=== PATIENT | female | born 1965 | race Caucasian/White ===

== ENCOUNTER → 2022-06-26 | Outpatient (CLI) | payer OTHER ==
[~2022-06-26] MED LIST: ANAS1TAB2 PO; ARIP10TA32 PO; ARIP1TAB4; ARIP1TAB6 PO; CALTTAB6 PO; DEXA4TA PO; IBRA100C PO; LORA1TAB4 PO; LORA2CON5 PO; MULT-90 PO; NAPR-832 PO; ONDA-84 PO; PROC10TA5 PO
[2022-06-26 13:45] VITALS: BP 106/66
== END ==
LOC: M IRPRO 12:14
PROVIDERS: ATTEND Specialist
DX: J18.8 Other pneumonia, unspecified organism (principal); C50.912 Malignant neoplasm of unspecified site of left female breast; C79.51 Secondary malignant neoplasm of bone

== ENCOUNTER → 2022-07-23 | Outpatient (CLI) | payer OTHER ==
[~2022-07-23] MED LIST changes: +LIDOCAINE 1% MDV 20ML VIAL As Ordered ONE
[2022-07-23 14:45] VITALS: BP 123/74
== END ==
LOC: M IRPRO 13:18
PROVIDERS: ATTEND Specialist
DX: C50.912 Malignant neoplasm of unspecified site of left female breast (principal); C79.51 Secondary malignant neoplasm of bone; R18.0 Malignant ascites

== ENCOUNTER → 2022-08-18 | Outpatient (CLI) | payer OTHER ==
[~2022-08-18] MED LIST changes: -LIDOCAINE 1% MDV 20ML VIAL As Ordered ONE; +OMEP1CAP73 PO; +VERZ150T PO
[2022-08-18 13:50] VITALS: BP 122/75
[2022-08-18 14:15] LABS: HEMATOCRIT 33.3 % (36.0-47.0); MEAN CORPUSCULAR HEMOGLOBIN 30.7 pg (27.0-33.0); PLATELET COUNT, AUTOMATED 258 10^3/uL (150-450); RED BLOOD COUNT 3.58 10^6/uL (4.00-5.40)
[2022-08-18 14:25] LABS: INR 0.97; PROTHROMBIN TIME 13.1 SECONDS (12.5-14.5)
[2022-08-18 14:26] LABS: PARTIAL THROMBOPLASTIN TIME 36.1 SECONDS (24.8-34.2)
[2022-08-18 14:58] LABS: ALBUMIN 2.3 GM/DL (3.2-5.2); ALT/SGPT 14 U/L (12-78); BILIRUBIN,TOTAL 0.4 MG/DL (0.2-1.0); BLOOD UREA NITROGEN 7 MG/DL (7-18); CALCIUM LEVEL 8.9 MG/DL (8.5-10.1); CARBON DIOXIDE LEVEL 29 MEQ/L (21-32); CHLORIDE LEVEL 107 MEQ/L (98-107); CREATININE FOR GFR 0.85 MG/DL (0.55-1.30); GLOMERULAR FILTRATION RATE > 60.0 (>51); GLUCOSE, FASTING 90 MG/DL (70-100); SODIUM LEVEL 141 MEQ/L (136-145); TOTAL PROTEIN 5.3 GM/DL (6.4-8.2)
== END ==
LOC: M IRPRO 12:22
PROVIDERS: ATTEND Specialist
DX: R18.8 Other ascites (principal)

== ENCOUNTER → 2022-09-08 | Outpatient (CLI) | payer OTHER ==
[~2022-09-08] MED LIST changes: +LIDOCAINE 1% MDV 20ML VIAL As Ordered ONE
[2022-09-08 12:25] VITALS: BP 113/76
== END ==
LOC: M IRPRO 10:06
PROVIDERS: ATTEND Specialist
DX: C50.919 Malignant neoplasm of unspecified site of unspecified female breast (principal); R18.8 Other ascites

== ENCOUNTER → 2022-10-07 | Outpatient (CLI) | payer OTHER ==
[~2022-10-07] MED LIST changes: -LIDOCAINE 1% MDV 20ML VIAL As Ordered ONE; +POTA-151 PO
[2022-10-07 15:08] VITALS: BP 122/84
== END ==
LOC: M IRPRO 13:56
PROVIDERS: ATTEND Specialist
DX: C50.919 Malignant neoplasm of unspecified site of unspecified female breast (principal); R18.0 Malignant ascites

== ENCOUNTER → 2022-11-20 | Outpatient (CLI) | payer OTHER ==
[~2022-11-20] MED LIST changes: +FULV250S IM
[2022-11-20 13:28] VITALS: BP 115/71
== END ==
LOC: M IRPRO 11:53
PROVIDERS: ATTEND Specialist
DX: C50.919 Malignant neoplasm of unspecified site of unspecified female breast (principal); R18.0 Malignant ascites

== ENCOUNTER → 2022-12-25 | Outpatient (CLI) | payer MEDICARE ==
[~2022-12-25] MED LIST changes: +LOPE-39 PO
[2022-12-25 12:37] VITALS: BP 115/73
== END ==
LOC: M IRPRO 11:27
PROVIDERS: ATTEND Specialist
DX: C50.919 Malignant neoplasm of unspecified site of unspecified female breast (principal); R18.0 Malignant ascites

== ENCOUNTER → 2023-02-09 | Outpatient (CLI) | payer MEDICARE, OTHER ==
[~2023-02-09] MED LIST changes: +LIDOCAINE 1% MDV 20ML VIAL As Ordered ONE
== END ==
LOC: M IRPRO 13:56
PROVIDERS: ATTEND Specialist
DX: R18.8 Other ascites (principal)

== ENCOUNTER → 2023-03-12 | Outpatient (CLI) | payer MEDICARE, OTHER ==
[~2023-03-12] MED LIST changes: -LIDOCAINE 1% MDV 20ML VIAL As Ordered ONE; +LORA1TAB23 PO; -LORA1TAB4 PO; +OMEP-173
[2023-03-12 11:03] LABS: INR 0.97; PARTIAL THROMBOPLASTIN TIME 31.3 SECONDS (24.8-34.2); PROTHROMBIN TIME 13.1 SECONDS (12.5-14.5)
[2023-03-12 11:41] VITALS: BP 118/79
== END ==
LOC: M IRPRO 10:08
PROVIDERS: ATTEND Specialist
DX: C50.919 Malignant neoplasm of unspecified site of unspecified female breast (principal); R18.0 Malignant ascites

== ENCOUNTER → 2023-04-28 | Outpatient (CLI) | payer MEDICARE ==
[~2023-04-28] MED LIST changes: +CAPE1TAB2 PO; +FURO20TA2 PO; +SPIR-10 PO
[2023-04-28 13:15] VITALS: TEMP 98.5
[2023-04-28 14:22] VITALS: BP 111/67; O2SAT 98
[2023-04-28 15:27] LABS: SOURCE, BODY FLUID ASCITES
[2023-04-28 15:28] LABS: APPEARANCE, BODY FLUID CLEAR (CLEAR); ASCITES FL COLOR YELLOW (COLORLESS)
[2023-04-28 15:30] LABS: SOURCE, BODY FLUID GLUCOSE ASCITES
[2023-04-28 15:31] LABS: LDH, BODY FLUID 126 U/L (NOT ESTABLISHED); SOURCE, BODY FLUID LDH ASCITES
[2023-04-28 15:32] LABS: SOURCE, BODY FLUID TOT PROTEIN ASCITES; TOTAL PROTEIN, BODY FLUID 3.8 G/DL (NOT ESTABLISHED)
== END ==
LOC: M IRPRO 12:37
PROVIDERS: ATTEND Specialist
DX: R18.8 Other ascites (principal)

== ENCOUNTER → 2023-07-06 | Outpatient (CLI) | payer MEDICARE, MEDICAID ==
[~2023-07-06] MED LIST changes: -OMEP-173; +OMEP-173 PO; +PEPC40TA12 PO
[2023-07-06 13:50] VITALS: TEMP 97.5
[2023-07-06 15:15] VITALS: BP 121/72; O2SAT 100
== END ==
LOC: M IRPRO 12:51
PROVIDERS: ATTEND Specialist
DX: R18.8 Other ascites (principal)

== ENCOUNTER → 2023-12-01 | Outpatient (CLI) | payer MEDICARE ==
[2023-12-01 11:45] VITALS: TEMP 98.5
[2023-12-01 12:38] VITALS: BP 126/77; O2SAT 100
== END ==
LOC: M IRPRO 11:30
PROVIDERS: ATTEND Internal Medicine Medical Oncology
DX: R18.8 Other ascites (principal); C50.919 Malignant neoplasm of unspecified site of unspecified female breast

== ENCOUNTER 2023-12-03 13:59 | Inpatient (IN) | payer MEDICARE ==
[2023-12-03] VITALS (19 sets, daily range): BP systolic 94–130; BP diastolic 52–85; TEMP 97–97.3; O2SAT 100
[~2023-12-03] VITALS: Ht 165.1 cm; Wt 84.6 kg
[2023-12-03] MEDS ORDERED: LEVALBUTEROL 1.25MG 0.5ML CONCENTRATE NEB NEB PRN (15:35)
[2023-12-03] MEDS ORDERED: PERCOCET 5MG/325MG TAB PO PRN (15:35)
[2023-12-03] MEDS ORDERED: ACETAMINOPHEN TAB 650MG DOSE (2X325MG) PO PRN (15:35)
[2023-12-03] MEDS ORDERED: BISACODYL 10MG SUPP PR PRN (15:35)
[2023-12-03] MEDS ORDERED: ONDANSETRON 4MG 2ML VIAL IV PRN (15:35)
[2023-12-03 15:45] LABS: BASO % 0.6 % (0.0-1.0); EOS % 0.4 % (0.0-3.0); HEMATOCRIT 35.3 % (36.0-47.0); HEMOGLOBIN 11.9 g/dl (12.0-15.5); LYMPH # 1.1 10^3/uL (1.5-5.0); LYMPH % 21.4 % (24.0-44.0); MEAN CORPUSCULAR HEMOGLOBIN 32.8 pg (27.0-33.0); MEAN CORPUSCULAR HGB CONC 33.7 g/dl (32.0-36.5); MEAN CORPUSCULAR VOLUME 97.2 fl (80.0-96.0); MONO # 0.3 10^3/uL (0.0-0.8); MONO % 5.6 % (2.0-8.0); NEUTROPHILS # 3.6 10^3/uL (1.5-8.5); NEUTROPHILS % 71.6 % (36.0-66.0); PLATELET COUNT, AUTOMATED 207 10^3/uL (150-450); RED BLOOD COUNT 3.63 10^6/uL (4.00-5.40)
[2023-12-03 15:57] LABS: INR 1.18; PARTIAL THROMBOPLASTIN TIME 30.4 SECONDS (24.8-34.2); PROTHROMBIN TIME 14.6 SECONDS (12.5-14.5)
[2023-12-03] MEDS: flumazeniL 0.5MG/5ML VIAL IV STA (15:58)
[2023-12-03 16:18] LABS: CK-MB VALUE MASS < 1.0 NG/ML (<3.6)
[2023-12-03 16:20] LABS: CPK CREATINE PHOSPHOKINASE 40 U/L (34-145)
[2023-12-03 16:21] LABS: ALBUMIN 3.3 G/DL (3.2-5.2); ALKALINE PHOSPHATASE 118 U/L (46-116); ALT/SGPT 20 U/L (7.0-40); AST/SGOT 21 U/L (<34); BILIRUBIN,DIRECT 0.6 MG/DL (<0.4); BILIRUBIN,TOTAL 1.6 MG/DL (0.3-1.2); BLOOD UREA NITROGEN 15 MG/DL (9-23); CALCIUM LEVEL 8.9 MG/DL (8.5-10.1); CARBON DIOXIDE LEVEL 28 MMOL/L (20-31); CHLORIDE LEVEL 104 MMOL/L (98-107); CREATININE FOR GFR 0.82 MG/DL (0.55-1.30); GLOMERULAR FILTRATION RATE > 60.0 (>51); GLUCOSE, FASTING 89 MG/DL (60-100); POTASSIUM SERUM 4.2 MMOL/L (3.5-5.1); SODIUM LEVEL 137 MMOL/L (136-145)
[2023-12-03 16:22] LABS: THYROXINE (T4) 18.2 UG/DL (4.5-10.9)
[2023-12-03 16:23] LABS: RSV AMPLIFICATION NEGATIVE (NEGATIVE); THYROID STIMULATING HORMONE 0.973 uIU/ML (0.55-4.78)
[2023-12-03] MEDS: D5W/0.9% SODIUM CHLORIDE 1,000 ML IV SCH (16:25)
[2023-12-03 16:27] LABS: PROCALCITONIN 0.06 ng/ml
[2023-12-03] MEDS: ceFAZolin SOD 2 GM in IV 1 EA IV ONE (16:40)
[2023-12-03] MEDS ORDERED: FAMO40TA3 PO (17:03)
[2023-12-03] MEDS ORDERED: FURO20TA2 PO (17:03)
[2023-12-03] MEDS ORDERED: SPIR-10 PO (17:04)
[2023-12-03] MEDS ORDERED: CAPE1TAB2 PO (17:05)
[2023-12-03 17:10] LABS: CK-MB VALUE MASS < 1.0 NG/ML (<3.6); CPK CREATINE PHOSPHOKINASE 51 U/L (34-145); MB/CK RELATIVE INDEX 1.96 (< OR =4)
[2023-12-03 17:13] LABS: ABG BASE EXCESS -1.5 (-2.0-2.0); ABG HCO3 21.7 MMOL/L (22.0-26.0); ABG O2 SATURATION 97.5 % (95.0-99.0); ABG PARTIAL PRESSURE CO2 31.8 mmHg (35.0-45.0); ABG STANDARD HCO3 23.2 MMOL/L. (22.0-26.0); ABG TOTAL CO2 22.6 MMOL/L (22.0-29.0); ABG pH (ARTERIAL) 7.451 UNITS (7.350-7.450)
[2023-12-03] MEDS ORDERED: HOME MED LIST COMPLETE! XX SCH (17:15)
[2023-12-03] MEDS: MIDAZOLAM INJ 2MG/2ML VIAL IV STA (17:25)
[2023-12-03] MEDS: LIDOCAINE 1% MDV 20ML VIAL SC STA (17:30)
[2023-12-03] MEDS: MIDAZOLAM INJ 2MG/2ML VIAL IV ONE (17:34)
[2023-12-03] MEDS: MOM 30ML SUSPENSION UDC PO SCH (18:35)
[2023-12-03] MEDS: KETOROLAC 30 MG/ML 1ML VIAL IV SCH (18:58)
[2023-12-03] MEDS: PANTOPRAZOLE 40MG TAB (PROTONIX) PO SCH (18:58)
[2023-12-03 19:05] LABS: PH BODY FLUID 7.531 UNITS (NOT ESTABLISHED); SOURCE, BODY FLUID pH PLEURAL
[2023-12-03 19:28] LABS: SOURCE, BODY FLUID PLEURAL
[2023-12-03 19:29] LABS: APPEARANCE, BODY FLUID HAZY (CLEAR); PLEURAL FL COLOR YELLOW (COLORLESS)
[2023-12-03 19:41] LABS: SOURCE, BODY FLUID ALBUMIN PLEURAL
[2023-12-03 19:46] LABS: SOURCE, BODY FLUID GLUCOSE PLEURAL
[2023-12-03 19:48] LABS: AMYLASE, BODY FLUID 102 U/L (NOT ESTABLISHED); CHOLESTEROL, BODY FLUID 114 MG/DL (NOT ESTABLISHED); LDH, BODY FLUID 176 U/L (NOT ESTABLISHED); SOURCE, BODY FLUID AMYLASE PLEURAL; SOURCE, BODY FLUID CHOL PLEURAL; SOURCE, BODY FLUID LDH PLEURAL; SOURCE, BODY FLUID TOT PROTEIN PLEURAL; TOTAL PROTEIN, BODY FLUID 4.6 G/DL (NOT ESTABLISHED)
[2023-12-03 19:52] LABS: SOURCE, BODY FLUID TRIG PLEURAL; TRIGLYCERIDE, BODY FLUID 31 MG/DL (NOT ESTABLISHED)
[2023-12-03] MEDS: LEVALBUTEROL 1.25MG 0.5ML CONCENTRATE NEB NEB SCH (20:22)
[2023-12-03] MEDS: DOCUSATE SODIUM 100MG CAPSULE PO SCH (20:33)
[2023-12-03] MEDS: HEPARIN SOD (PORCINE) 5000UNITS/ML 1ML VIAL/SYRINGE SC SCH (20:33)
[2023-12-04] VITALS (7 sets, daily range): BP systolic 86–115; BP diastolic 50–66; TEMP 97.2–97.8; O2SAT 95–100
[2023-12-04 02:10] LABS: LDH LACTATE DEHYDROGENASE 250 U/L (120-246)
[2023-12-04] MEDS: HYDROCORTISONE 100MG/2ML VIAL IV ONE (04:19)
[2023-12-04] MEDS: NS 500 ML IV ONE (04:20)
[2023-12-04 06:14] LABS: ABG BASE EXCESS -1.1 (-2.0-2.0); ABG HCO3 23.2 MMOL/L (22.0-26.0); ABG O2 SATURATION 97.2 % (95.0-99.0); ABG PARTIAL PRESSURE CO2 37.4 mmHg (35.0-45.0); ABG PARTIAL PRESSURE O2 91.2 mmHg (75.0-100.0); ABG STANDARD HCO3 23.5 MMOL/L. (22.0-26.0); ABG TOTAL CO2 24.3 MMOL/L (22.0-29.0)
[2023-12-04 06:26] LABS: PH BODY FLUID 7.546 UNITS (NOT ESTABLISHED); SOURCE, BODY FLUID pH PLEURAL
[2023-12-04 06:36] LABS: SOURCE, BODY FLUID ALBUMIN PLEURAL
[2023-12-04 06:41] LABS: SOURCE, BODY FLUID GLUCOSE PLEURAL
[2023-12-04 06:42] LABS: LDH, BODY FLUID 190 U/L (NOT ESTABLISHED); SOURCE, BODY FLUID LDH PLEURAL
[2023-12-04 06:43] LABS: AMYLASE, BODY FLUID 95 U/L (NOT ESTABLISHED); CHOLESTEROL, BODY FLUID 108 MG/DL (NOT ESTABLISHED); SOURCE, BODY FLUID AMYLASE PLEURAL; SOURCE, BODY FLUID CHOL PLEURAL; SOURCE, BODY FLUID TOT PROTEIN PLEURAL; TOTAL PROTEIN, BODY FLUID 4.4 G/DL (NOT ESTABLISHED)
[2023-12-04 06:53] LABS: SOURCE, BODY FLUID TRIG PLEURAL; TRIGLYCERIDE, BODY FLUID 30 MG/DL (NOT ESTABLISHED)
[2023-12-04 06:54] LABS: APPEARANCE, BODY FLUID HAZY (CLEAR); PLEURAL FL COLOR AMBER (COLORLESS); SOURCE, BODY FLUID PLEURAL
[2023-12-04 07:09] LABS: BASO % 0.5 % (0.0-1.0); EOS % 0.2 % (0.0-3.0); HEMATOCRIT 34.2 % (36.0-47.0); HEMOGLOBIN 11.4 g/dl (12.0-15.5); LYMPH # 0.7 10^3/uL (1.5-5.0); LYMPH % 15.4 % (24.0-44.0); MEAN CORPUSCULAR HEMOGLOBIN 32.6 pg (27.0-33.0); MEAN CORPUSCULAR HGB CONC 33.3 g/dl (32.0-36.5); MEAN CORPUSCULAR VOLUME 97.7 fl (80.0-96.0); MONO # 0.2 10^3/uL (0.0-0.8); MONO % 3.8 % (2.0-8.0); NEUTROPHILS # 3.4 10^3/uL (1.5-8.5); NEUTROPHILS % 79.9 % (36.0-66.0); PLATELET COUNT, AUTOMATED 194 10^3/uL (150-450); WHITE BLOOD COUNT 4.2 10^3/uL (4.0-10.0)
[2023-12-04 07:35] LABS: LDH LACTATE DEHYDROGENASE 224 U/L (120-246)
[2023-12-04 07:36] LABS: BLOOD UREA NITROGEN 11 MG/DL (9-23); CALCIUM LEVEL 8.5 MG/DL (8.5-10.1); CARBON DIOXIDE LEVEL 28 MMOL/L (20-31); CHLORIDE LEVEL 108 MMOL/L (98-107); CREATININE FOR GFR 0.78 MG/DL (0.55-1.30); GLOMERULAR FILTRATION RATE > 60.0 (>51); GLUCOSE, FASTING 97 MG/DL (60-100); POTASSIUM SERUM 4.1 MMOL/L (3.5-5.1); SODIUM LEVEL 141 MMOL/L (136-145)
[2023-12-04] MEDS ORDERED: NS 1,000 ML IV ONE (09:05)
[2023-12-04] MEDS: MIDODRINE 5 MG TAB PO SCH (09:30)
[2023-12-04] MEDS ORDERED: MIDO5TA PO (09:32)
[2023-12-04] MEDS ORDERED: SELF1KIT MC (09:37)
[2023-12-04] MEDS: COSYNTROPIN 0.25 MG/ML 1ML VIAL IV ONE (10:16)
[2023-12-04] MEDS: LR 1,000 ML IV SCH (11:00)
[2023-12-04] MEDS ORDERED: COSYNTROPIN 0.25 MG/ML 1ML VIAL IV ONE (11:00)
[2023-12-04 11:09] LABS: CK-MB VALUE MASS < 1.0 NG/ML (<3.6)
[2023-12-04 11:10] LABS: CPK CREATINE PHOSPHOKINASE 59 U/L (34-145); MB/CK RELATIVE INDEX 1.69 (< OR =4)
[2023-12-04 11:13] LABS: CORTISOL AM 32.6 UG/DL (4.3-22.4)
[2023-12-04 11:22] LABS: PROCALCITONIN 0.06 ng/ml
[2023-12-04] MEDS: NS 1,000 ML IV ONE (11:47)
[2023-12-04] MEDS ORDERED: MIDODRINE 5 MG TAB PO SCH (12:00)
[2023-12-05 03:52] VITALS: BP 108/50; TEMP 98.1; O2SAT 97
[2023-12-05 07:18] LABS: BASO % 0.4 % (0.0-1.0); EOS # 0.1 10^3/uL (0.0-0.5); HEMATOCRIT 32.5 % (36.0-47.0); HEMOGLOBIN 10.8 g/dl (12.0-15.5); LYMPH # 1.2 10^3/uL (1.5-5.0); LYMPH % 23.7 % (24.0-44.0); MEAN CORPUSCULAR HEMOGLOBIN 32.9 pg (27.0-33.0); MEAN CORPUSCULAR HGB CONC 33.2 g/dl (32.0-36.5); MEAN CORPUSCULAR VOLUME 99.1 fl (80.0-96.0); MONO # 0.4 10^3/uL (0.0-0.8); MONO % 7.2 % (2.0-8.0); NEUTROPHILS # 3.5 10^3/uL (1.5-8.5); NEUTROPHILS % 67.3 % (36.0-66.0); PLATELET COUNT, AUTOMATED 194 10^3/uL (150-450); RED BLOOD COUNT 3.28 10^6/uL (4.00-5.40); WHITE BLOOD COUNT 5.1 10^3/uL (4.0-10.0)
[2023-12-05 07:24] VITALS: BP 107/62
[2023-12-05 07:28] VITALS: BP 107/62; TEMP 98.2; O2SAT 98
[2023-12-05] MEDS: PERCOCET 5MG/325MG TAB PO PRN (07:34)
[2023-12-05 07:36] LABS: BLOOD UREA NITROGEN 12 MG/DL (9-23); CALCIUM LEVEL 8.5 MG/DL (8.5-10.1); CARBON DIOXIDE LEVEL 26 MMOL/L (20-31); CHLORIDE LEVEL 111 MMOL/L (98-107); CREATININE FOR GFR 0.73 MG/DL (0.55-1.30); GLOMERULAR FILTRATION RATE > 60.0 (>51); GLUCOSE, FASTING 85 MG/DL (60-100); POTASSIUM SERUM 3.9 MMOL/L (3.5-5.1); SODIUM LEVEL 143 MMOL/L (136-145)
[2023-12-05 09:37] VITALS: BP 104/59
[2023-12-08] MEDS ORDERED: CAPE1TAB2 PO (13:51)
== END 2023-12-05 10:27 | disposition home or self-care (01) | DRG 598 ==
LOC: M ED 13:59 → M ED INP 15:34 → M PCU 16:17
PROVIDERS: ADMIT Internal Medicine; ATTEND General Practice
PROC: 0W9B3ZZ Drainage of Left Pleural Cavity, Percutaneous Approach (ICD-10-PCS; principal; 2023-12-03)
DX: C50.912 Malignant neoplasm of unspecified site of left female breast (principal); R18.0 Malignant ascites; E87.20 Acidosis, unspecified; C79.51 Secondary malignant neoplasm of bone; C78.7 Secondary malignant neoplasm of liver and intrahepatic bile duct; C78.6 Secondary malignant neoplasm of retroperitoneum and peritoneum; J91.0 Malignant pleural effusion; I95.9 Hypotension, unspecified; E86.1 Hypovolemia; D63.8 Anemia in other chronic diseases classified elsewhere; F41.9 Anxiety disorder, unspecified; F20.9 Schizophrenia, unspecified; Z92.21 Personal history of antineoplastic chemotherapy; Z87.891 Personal history of nicotine dependence; Z91.013 Allergy to seafood; Z88.8 Allergy status to other drugs, medicaments and biological substances; Z79.899 Other long term (current) drug therapy

== ENCOUNTER 2024-01-24 12:23 | Day surgery (SDC) | payer MEDICARE ==
[~2024-01-24] VITALS: Ht 165.1 cm; Wt 87.8 kg
[~2024-01-24 12:23] MED LIST changes: +FAMO40TA3 PO; +MIDO5TA PO; +SELF1KIT MC
[2024-01-24 13:10] VITALS: TEMP 97
[2024-01-24 13:38] LABS: HEMATOCRIT 35.9 % (36.0-47.0); HEMOGLOBIN 12.1 g/dl (12.0-15.5); MEAN CORPUSCULAR HEMOGLOBIN 32.4 pg (27.0-33.0); MEAN CORPUSCULAR HGB CONC 33.7 g/dl (32.0-36.5); MEAN CORPUSCULAR VOLUME 96.2 fl (80.0-96.0); PLATELET COUNT, AUTOMATED 222 10^3/uL (150-450); RED BLOOD COUNT 3.73 10^6/uL (4.00-5.40); WHITE BLOOD COUNT 4.2 10^3/uL (4.0-10.0)
[2024-01-24] MEDS: ceFAZolin SOD 2 GM in IV 1 EA IV ONE (13:47)
[2024-01-24 13:53] LABS: INR 1.14; PROTHROMBIN TIME 14.3 SECONDS (12.5-14.5)
[2024-01-24 14:15] LABS: BLOOD UREA NITROGEN 18 MG/DL (9-23); CALCIUM LEVEL 9.5 MG/DL (8.5-10.1); CARBON DIOXIDE LEVEL 28 MMOL/L (20-31); CHLORIDE LEVEL 104 MMOL/L (98-107); CREATININE FOR GFR 0.86 MG/DL (0.55-1.30); GLOMERULAR FILTRATION RATE > 60.0 (>51); GLUCOSE, FASTING 84 MG/DL (60-100); POTASSIUM SERUM 4.2 MMOL/L (3.5-5.1); SODIUM LEVEL 140 MMOL/L (136-145)
[2024-01-24] MEDS ORDERED: MIDAZOLAM INJ 2MG/2ML VIAL As Ordered ONE (15:02)
[2024-01-24 15:50] VITALS: BP 129/82; O2SAT 100
[2024-01-24] MEDS ORDERED: LIDOCAINE W/EPINEPHRINE 1% 20ML VIAL As Ordered ONE (16:06)
== END 2024-01-24 15:59 | disposition home or self-care (01) ==
LOC: M OPP 12:23
PROVIDERS: ATTEND Thoracic Surgery (Cardiothoracic Vascular Surgery)
DX: Z48.03 Encounter for change or removal of drains (principal); J91.0 Malignant pleural effusion; C50.912 Malignant neoplasm of unspecified site of left female breast; Z88.8 Allergy status to other drugs, medicaments and biological substances; Z91.013 Allergy to seafood; Z51.81 Encounter for therapeutic drug level monitoring
CPT/HCPCS: 32552; 36415; 80048; 85027; 85610; 85730; J0690; J2250

== ENCOUNTER → 2024-03-30 | Outpatient (CLI) | payer MEDICARE ==
[~2024-03-30] MED LIST changes: +TAMO20TA8 PO
[2024-03-30 09:30] VITALS: TEMP 98.5
[2024-03-30 10:00] VITALS: BP 123/65; O2SAT 99
== END ==
LOC: M IRPRO 09:18
PROVIDERS: ATTEND Internal Medicine Medical Oncology
DX: R18.8 Other ascites (principal)

== ENCOUNTER → 2024-05-08 | Outpatient (CLI) | payer MEDICARE ==
[~2024-05-08] MED LIST changes: +HYDR-3713 PO
[2024-05-08 12:20] VITALS: TEMP 97.9
[2024-05-08 13:16] VITALS: BP 119/79; O2SAT 100
== END ==
LOC: M IRPRO 12:04
PROVIDERS: ATTEND Specialist
DX: R18.8 Other ascites (principal); C34.90 Malignant neoplasm of unspecified part of unspecified bronchus or lung

== ENCOUNTER 2024-07-03 11:09 | Inpatient (IN) | payer MEDICARE ==
[~2024-07-03] VITALS: Ht 165.1 cm; Wt 97.5 kg
[~2024-07-03 11:09] MED LIST changes: +ALPE1TAB3 PO; +ONDA-196 PO
[2024-07-03 13:32] LABS: HEMATOCRIT 31.8 % (36.0-47.0); HEMOGLOBIN 10.4 g/dl (12.0-15.5); LYMPH # 0.7 10^3/uL (1.5-5.0); LYMPH % 69.3 % (24.0-44.0); MEAN CORPUSCULAR HEMOGLOBIN 27.5 pg (27.0-33.0); MEAN CORPUSCULAR HGB CONC 32.7 g/dl (32.0-36.5); MEAN CORPUSCULAR VOLUME 84.1 fl (80.0-96.0); MONO # 0.1 10^3/uL (0.0-0.8); MONO % 13.9 % (2.0-8.0); NEUTROPHILS % 15.8 % (36.0-66.0); PLATELET COUNT, AUTOMATED 195 10^3/uL (150-450); RED BLOOD COUNT 3.78 10^6/uL (4.00-5.40)
[2024-07-03 13:43] LABS: INR 1.18; PROTHROMBIN TIME 14.6 SECONDS (12.5-14.5)
[2024-07-03 14:01] LABS: BLOOD UREA NITROGEN 11 MG/DL (9-23); CALCIUM LEVEL 8.9 MG/DL (8.5-10.1); CARBON DIOXIDE LEVEL 29 MMOL/L (20-31); CHLORIDE LEVEL 105 MMOL/L (98-107); CREATININE FOR GFR 0.87 MG/DL (0.55-1.30); GLOMERULAR FILTRATION RATE > 60.0 (>51); GLUCOSE, FASTING 98 MG/DL (60-100); POTASSIUM SERUM 3.8 MMOL/L (3.5-5.1); SODIUM LEVEL 138 MMOL/L (136-145)
[2024-07-03 16:39] LABS: APPEARANCE, BODY FLUID CLEAR (CLEAR); ASCITES FL COLOR YELLOW (COLORLESS); SOURCE, BODY FLUID ASCITES
[2024-07-03 16:58] LABS: SOURCE, BODY FLUID ALBUMIN ASCITES
[2024-07-03 17:03] LABS: SOURCE, BODY FLUID GLUCOSE ASCITES; SOURCE, BODY FLUID TOT PROTEIN ASCITES; TOTAL PROTEIN, BODY FLUID 4.1 G/DL (NOT ESTABLISHED)
[2024-07-03] MEDS ORDERED: ACETAMINOPHEN TAB 650MG DOSE (2X325MG) PO PRN (17:05)
[2024-07-03] MEDS ORDERED: NORCO, ANEXSIA 5/325MG TABLET (HYDROcodone/ACETAMINOPHEN) PO PRN ×2 (17:05)
[2024-07-03] MEDS ORDERED: ONDANSETRON 4MG TAB PO PRN (17:05)
[2024-07-03] MEDS ORDERED: MOM 30ML SUSPENSION UDC PO PRN (17:05)
[2024-07-03] MEDS ORDERED: ONDA-84 PO (17:10)
[2024-07-03] MEDS ORDERED: HOME MED LIST COMPLETE! XX SCH (17:10)
[2024-07-03] MEDS: LACTOBACILLUS ACIDOPHILUS CAP (BACID) PO SCH (18:40)
[2024-07-03] MEDS: PIPERACILLIN/TAZOBACTAM SOD 4.5 GM in D5W MINI-BAG PLUS 50 ML IV ONE (18:40)
[2024-07-03] MEDS: VANCOMYCIN HCL 1,000 MG, VIAL MATE ADAPTER 1 EACH in D5W 250 ML IV ONE ×2 (19:36→20:50)
[2024-07-03] MEDS: SENNA 8.6 MG TAB (SENOKOT) PO SCH (20:48)
[2024-07-03] MEDS: DOCUSATE SODIUM 100MG CAPSULE PO SCH (20:48)
[2024-07-03 22:05] VITALS: BP 124/83; TEMP 97.5; O2SAT 99
[2024-07-03] MEDS: FILGRASTIM 300MCG 0.5ML SYRINGE **SC ADMINISTRATION ONLY SC SCH (23:36)
[2024-07-04] MEDS: PIPERACILLIN/TAZOBACTAM SOD 3.375 GM in D5W MINI-BAG PLUS 50 ML IV SCH (00:43)
[2024-07-04 04:00] VITALS: BP 123/83; TEMP 97.3; O2SAT 97
[2024-07-04] MEDS: VANCOMYCIN HCL 1,000 MG, VIAL MATE ADAPTER 1 EACH in D5W 250 ML IV SCH (04:46)
[2024-07-04 06:29] LABS: HEMATOCRIT 27.7 % (36.0-47.0); HEMOGLOBIN 9.2 g/dl (12.0-15.5); MEAN CORPUSCULAR HEMOGLOBIN 27.5 pg (27.0-33.0); MEAN CORPUSCULAR HGB CONC 33.2 g/dl (32.0-36.5); MEAN CORPUSCULAR VOLUME 82.7 fl (80.0-96.0); PLATELET COUNT, AUTOMATED 181 10^3/uL (150-450); RED BLOOD COUNT 3.35 10^6/uL (4.00-5.40); WHITE BLOOD COUNT 1.4 10^3/uL (4.0-10.0)
[2024-07-04 07:13] LABS: ALBUMIN 2.7 G/DL (3.2-5.2); ALKALINE PHOSPHATASE 129 U/L (46-116); ALT/SGPT 55 U/L (7.0-40); AST/SGOT 31 U/L (<34); BILIRUBIN,TOTAL 0.8 MG/DL (0.3-1.2); BLOOD UREA NITROGEN 9 MG/DL (9-23); CALCIUM LEVEL 8.3 MG/DL (8.5-10.1); CARBON DIOXIDE LEVEL 26 MMOL/L (20-31); CHLORIDE LEVEL 105 MMOL/L (98-107); GLOMERULAR FILTRATION RATE > 60.0 (>51); GLUCOSE, FASTING 107 MG/DL (60-100); POTASSIUM SERUM 3.4 MMOL/L (3.5-5.1); SODIUM LEVEL 136 MMOL/L (136-145); TOTAL PROTEIN 5.1 G/DL (5.7-8.2)
[2024-07-04 07:47] LABS: ATYPICAL LYMPH 10 % (0-5); BASOPHILS 1 % (0-1); LYMPHOCYTES 66 % (16-44); MONOCYTES 8 % (0-5); NEUTROPHILS 15 % (28-66)
[2024-07-04 07:53] LABS: PLATELET ESTIMATE NORMAL (NORMAL)
[2024-07-04 08:06] LABS: VANCOMYCIN RANDOM 39.8 UG/ML
[2024-07-04] MEDS ORDERED: FILGRASTIM 300MCG 0.5ML SYRINGE **SC ADMINISTRATION ONLY SC SCH (09:00)
[2024-07-04] MEDS: ENOXAPARIN 40MG/0.4ML SYRINGE (J1650 PER 10MG) SC SCH (09:21)
[2024-07-04] MEDS: FUROSEMIDE 20 MG TAB PO SCH (09:23)
[2024-07-04] MEDS: SPIRONOLACTONE 25 MG TAB PO SCH (09:24)
[2024-07-04] MEDS: FAMOTIDINE 20 MG TAB PO SCH (09:24)
[2024-07-04 12:30] VITALS: BP 125/81; TEMP 98.4; O2SAT 97
[2024-07-04] MEDS: POTASSIUM CHLORIDE 10MEQ SR TABLET PO ONE (16:44)
[2024-07-04 20:00] VITALS: BP 119/77; TEMP 97.5; O2SAT 97
[2024-07-05 04:00] VITALS: BP 116/75; TEMP 97.7; O2SAT 96
[2024-07-05 08:02] LABS: HEMATOCRIT 32.4 % (36.0-47.0); HEMOGLOBIN 10.4 g/dl (12.0-15.5); LYMPH # 1.3 10^3/uL (1.5-5.0); LYMPH % 41.8 % (24.0-44.0); MEAN CORPUSCULAR HEMOGLOBIN 27.4 pg (27.0-33.0); MEAN CORPUSCULAR HGB CONC 32.1 g/dl (32.0-36.5); MEAN CORPUSCULAR VOLUME 85.5 fl (80.0-96.0); MONO # 0.7 10^3/uL (0.0-0.8); MONO % 21.9 % (2.0-8.0); NEUTROPHILS % 20.8 % (36.0-66.0); PLATELET COUNT, AUTOMATED 208 10^3/uL (150-450); RED BLOOD COUNT 3.79 10^6/uL (4.00-5.40); WHITE BLOOD COUNT 3.1 10^3/uL (4.0-10.0)
[2024-07-05 08:03] LABS: NEUTROPHILS # 0.7 10^3/uL (1.5-8.5)
[2024-07-05 08:38] LABS: BLOOD UREA NITROGEN 7 MG/DL (9-23); CALCIUM LEVEL 8.2 MG/DL (8.5-10.1); CARBON DIOXIDE LEVEL 26 MMOL/L (20-31); CHLORIDE LEVEL 104 MMOL/L (98-107); CREATININE FOR GFR 0.91 MG/DL (0.55-1.30); GLOMERULAR FILTRATION RATE > 60.0 (>51); GLUCOSE, FASTING 115 MG/DL (60-100); SODIUM LEVEL 136 MMOL/L (136-145)
[2024-07-05 12:10] VITALS: BP 114/75; TEMP 97.7; O2SAT 98
[2024-07-05] MEDS: POTASSIUM CHLORIDE 10MEQ SR TABLET PO SCH (18:11)
[2024-07-05] MEDS: LOPERAMIDE 2 MG CAPLET PO ONE (18:11)
[2024-07-05 20:00] VITALS: BP 140/80; TEMP 97.9; O2SAT 98
[2024-07-05] MEDS: LOPERAMIDE 2 MG CAPLET PO SCH (21:05)
[2024-07-06 04:00] VITALS: BP 125/89; TEMP 97.1; O2SAT 98
[2024-07-06 07:18] LABS: BASO # 0.1 10^3/uL (0.0-0.2); BASO % 0.3 % (0.0-1.0); EOS # 0.1 10^3/uL (0.0-0.5); EOS % 0.4 % (0.0-3.0); HEMATOCRIT 29.4 % (36.0-47.0); HEMOGLOBIN 9.7 g/dl (12.0-15.5); LYMPH # 2.2 10^3/uL (1.5-5.0); LYMPH % 14.3 % (24.0-44.0); MEAN CORPUSCULAR HEMOGLOBIN 27.7 pg (27.0-33.0); MONO # 2.3 10^3/uL (0.0-0.8); MONO % 14.9 % (2.0-8.0); NEUTROPHILS % 57.7 % (36.0-66.0); PLATELET COUNT, AUTOMATED 203 10^3/uL (150-450); WHITE BLOOD COUNT 15.5 10^3/uL (4.0-10.0)
[2024-07-06 07:43] LABS: BLOOD UREA NITROGEN < 5 MG/DL (9-23); CALCIUM LEVEL 8.8 MG/DL (8.5-10.1); CARBON DIOXIDE LEVEL 24 MMOL/L (20-31); CHLORIDE LEVEL 107 MMOL/L (98-107); CREATININE FOR GFR 0.82 MG/DL (0.55-1.30); GLOMERULAR FILTRATION RATE > 60.0 (>51); GLUCOSE, FASTING 83 MG/DL (60-100); POTASSIUM SERUM 3.5 MMOL/L (3.5-5.1); SODIUM LEVEL 138 MMOL/L (136-145)
[2024-07-06] MEDS ORDERED: POTA-150 PO (10:20)
[2024-07-06 12:00] VITALS: BP 132/78; TEMP 97.9; O2SAT 98
[2024-07-06] MEDS: FLUBLOK(EGGFREE) TRIVAL(24-25) VACCINE PF 0.5ML SYRINGE 18YRS & OLDER IM.IMMUN ONE (13:07)
[2024-07-06] MEDS: SODIUM CHLORIDE 0.9% INJ 10 ML SYR IV PRN (13:12)
[2024-07-07 15:02] LABS: NEUTROPHILS # 0.2 10^3/uL (1.5-8.5)
== END 2024-07-06 13:37 | disposition home or self-care (01) | DRG 809 ==
LOC: M ED 11:09 → M ED INP 17:05 → M MSPAV 21:58
PROVIDERS: ADMIT Internal Medicine; ATTEND Internal Medicine Nephrology
PROC: 0W9G3ZZ Drainage of Peritoneal Cavity, Percutaneous Approach (ICD-10-PCS; principal; 2024-07-03 15:00)
DX: D70.1 Agranulocytosis secondary to cancer chemotherapy (principal); C78.6 Secondary malignant neoplasm of retroperitoneum and peritoneum; C78.7 Secondary malignant neoplasm of liver and intrahepatic bile duct; C79.51 Secondary malignant neoplasm of bone; R18.0 Malignant ascites; K52.1 Toxic gastroenteritis and colitis; D61.810 Antineoplastic chemotherapy induced pancytopenia; F20.9 Schizophrenia, unspecified; M85.88 Other specified disorders of bone density and structure, other site; C50.912 Malignant neoplasm of unspecified site of left female breast; E87.6 Hypokalemia; F41.9 Anxiety disorder, unspecified; R26.89 Other abnormalities of gait and mobility; K21.9 Gastro-esophageal reflux disease without esophagitis; E66.9 Obesity, unspecified; Z87.891 Personal history of nicotine dependence; Z79.899 Other long term (current) drug therapy; Z88.8 Allergy status to other drugs, medicaments and biological substances

== ENCOUNTER → 2024-09-11 | Outpatient (CLI) | payer MEDICARE ==
[~2024-09-11] MED LIST changes: -ARIP10TA32 PO; +ARIP10TA63 PO; +BACT800T5 PO; +COLA100C5 PO; +GABA-1171 PO; +GABA-1172 PO; +GASTROGRAFIN SOLUTION 30ML ONE; +ISOVUE-370 76% 100ML VIAL ONE; +POTA-150 PO
== END ==
LOC: M PLAIMG 11:26
PROVIDERS: ATTEND Internal Medicine Hematology & Oncology
DX: C50.919 Malignant neoplasm of unspecified site of unspecified female breast (principal); R18.8 Other ascites; K57.90 Diverticulosis of intestine, part unspecified, without perforation or abscess without bleeding; D25.9 Leiomyoma of uterus, unspecified; C79.51 Secondary malignant neoplasm of bone; I70.0 Atherosclerosis of aorta; I25.10 Atherosclerotic heart disease of native coronary artery without angina pectoris; Z95.828 Presence of other vascular implants and grafts
CPT/HCPCS: 71260; 74178; Q9963; Q9967

== ENCOUNTER → 2025-02-12 | Outpatient (CLI) | payer MEDICARE ==
[~2025-02-12] VITALS: Ht 165.1 cm; Wt 93.5 kg
[~2025-02-12] MED LIST changes: +CEPH750C PO; +DULO30CA9 PO; -GASTROGRAFIN SOLUTION 30ML ONE; +HYDR-4571; +HYDR-4571 PO; -ISOVUE-370 76% 100ML VIAL ONE; +LOPE2CA PO; +METH-1164 PO; +MIRA3350 PO; +OXYC10TA12 PO; +RISATAB3 PO; +SENN-186 PO; +THERTAB19 PO; +TORS20TA2 PO; +TRIA1OI80 EXT
[2025-02-12 14:16] VITALS: BP 145/94; O2SAT 96
== END ==
LOC: M PAL 14:03
PROVIDERS: ATTEND Physician Assistant
DX: Z51.5 Encounter for palliative care (principal); C50.919 Malignant neoplasm of unspecified site of unspecified female breast; C79.51 Secondary malignant neoplasm of bone; C78.7 Secondary malignant neoplasm of liver and intrahepatic bile duct; C78.6 Secondary malignant neoplasm of retroperitoneum and peritoneum; R52 Pain, unspecified; K59.09 Other constipation; Z79.891 Long term (current) use of opiate analgesic; Z79.899 Other long term (current) drug therapy; Z91.013 Allergy to seafood; Z88.8 Allergy status to other drugs, medicaments and biological substances

== ENCOUNTER → 2025-02-27 | Outpatient (CLI) | payer MEDICARE ==
[~2025-02-27] VITALS: Ht 165.1 cm; Wt 98.7 kg
[~2025-02-27] MED LIST changes: +DULO1CAP5 PO; +LOPE1CAP5 PO; +MORP-69 PO; +ONDA-282 PO; +OXYC20TA40 PO
[2025-02-27 13:14] VITALS: BP 142/89; O2SAT 98
== END ==
LOC: M PAL 12:57
PROVIDERS: ATTEND Physician Assistant
DX: Z51.5 Encounter for palliative care (principal); C50.919 Malignant neoplasm of unspecified site of unspecified female breast; C79.51 Secondary malignant neoplasm of bone; C78.7 Secondary malignant neoplasm of liver and intrahepatic bile duct; C78.6 Secondary malignant neoplasm of retroperitoneum and peritoneum; Z79.891 Long term (current) use of opiate analgesic; R18.8 Other ascites; Z91.013 Allergy to seafood; Z88.8 Allergy status to other drugs, medicaments and biological substances; Z79.899 Other long term (current) drug therapy

== ENCOUNTER → 2025-03-01 | Outpatient (CLI) | payer MEDICARE ==
[2025-03-01 14:00] VITALS: TEMP 99.1
[2025-03-01 15:26] VITALS: BP 117/68; O2SAT 95
== END ==
LOC: M IRPRO 13:54
PROVIDERS: ATTEND Specialist
DX: R18.8 Other ascites (principal)

== ENCOUNTER → 2025-03-14 | Outpatient (CLI) | payer MEDICARE ==
[~2025-03-14] VITALS: Ht 165.1 cm; Wt 92.8 kg
[~2025-03-14] MED LIST changes: +MORP30TASA PO
[2025-03-14 11:42] VITALS: BP 132/88; O2SAT 96
== END ==
LOC: M PAL 11:27
PROVIDERS: ATTEND Physician Assistant
DX: Z51.5 Encounter for palliative care (principal); C50.911 Malignant neoplasm of unspecified site of right female breast; C78.7 Secondary malignant neoplasm of liver and intrahepatic bile duct; C79.51 Secondary malignant neoplasm of bone; C79.89 Secondary malignant neoplasm of other specified sites; Z98.890 Other specified postprocedural states; Z91.013 Allergy to seafood; Z79.899 Other long term (current) drug therapy; Z79.891 Long term (current) use of opiate analgesic

== ENCOUNTER 2025-05-14 13:10 | Inpatient (IN) | payer MEDICARE ==
[~2025-05-14] VITALS: Ht 165.1 cm; Wt 86.9 kg
[2025-05-14] MEDS ORDERED: DULO30CA9 PO (14:22)
[2025-05-14] MEDS ORDERED: ALPE1TAB3 PO (14:22)
[2025-05-14] MEDS ORDERED: ONDA-282 PO (14:22)
[2025-05-14] MEDS ORDERED: OXYC10TA12 PO (14:22)
[2025-05-14] MEDS ORDERED: METH-1164 PO (14:22)
[2025-05-14] MEDS ORDERED: MORP30TASA PO (14:22)
[2025-05-14] MEDS ORDERED: HOME MED LIST COMPLETE! XX SCH (14:25)
[2025-05-14] MEDS: POTASSIUM CHLORIDE 10MEQ SR TABLET PO ONE (14:37)
[2025-05-14] MEDS: KCL 10MEQ/100ML SWI (KRUN) 10 MEQ in IV 1 EA IV ONE ×2 (14:37→18:39)
[2025-05-14 15:22] LABS: INR 1.1
[2025-05-14] MEDS: MORPHINE 4 MG/ML 1 ML VIAL IV ONE (17:53)
[2025-05-14] MEDS: FUROSEMIDE 40 MG/4 ML VIAL IV SCH (18:39)
[2025-05-14 20:34] VITALS: BP 111/74; TEMP 97.5; O2SAT 95
[2025-05-14] MEDS: GABAPENTIN 300 MG CAP PO SCH (20:55)
[2025-05-14] MEDS: POTASSIUM CHLORIDE 10MEQ SR TABLET PO SCH (20:56)
[2025-05-14] MEDS: MORPHINE SULFATE TAB EXT REL 30 MG PO SCH (20:56)
[2025-05-14 22:44] LABS: CALCIUM LEVEL 8.3 MG/DL (8.5-10.1); CARBON DIOXIDE LEVEL 34.0 MMOL/L (20-31); CHLORIDE LEVEL 93.0 MMOL/L (98-107); CREATININE FOR GFR 0.93 MG/DL (0.55-1.30); GLOMERULAR FILTRATION RATE 71.7 (>51); POTASSIUM SERUM 3.7 MMOL/L (3.5-5.1); SODIUM LEVEL 138.0 MMOL/L (136-145)
[2025-05-15] MEDS: MAALOX 30 ML SUSP *UDC PO PRN (01:25)
[2025-05-15 04:38] VITALS: BP 111/69; TEMP 98.1; O2SAT 93
[2025-05-15 06:32] LABS: BASO # 0.1 10^3/uL (0.0-0.2); BASO % 1.1 % (0.0-1.0); EOS # 0.1 10^3/uL (0.0-0.5); EOS % 2.6 % (0.0-3.0); LYMPH # 1.3 10^3/uL (1.5-5.0); LYMPH % 23.5 % (24.0-44.0); MONO # 0.6 10^3/uL (0.0-0.8); MONO % 11.4 % (2.0-8.0); NEUTROPHILS # 3.1 10^3/uL (1.5-8.5); NEUTROPHILS % 57.5 % (36.0-66.0); PLATELET COUNT, AUTOMATED 282 10^3/uL (150-450)
[2025-05-15 07:02] LABS: CALCIUM LEVEL 8.2 MG/DL (8.5-10.1); CARBON DIOXIDE LEVEL 32.0 MMOL/L (20-31); CHLORIDE LEVEL 93.0 MMOL/L (98-107); CREATININE FOR GFR 0.97 MG/DL (0.55-1.30); GLOMERULAR FILTRATION RATE 68.2 (>51); POTASSIUM SERUM 3.9 MMOL/L (3.5-5.1); SODIUM LEVEL 136.0 MMOL/L (136-145)
[2025-05-15] MEDS: ENOXAPARIN 40 MG/0.4 ML SYRINGE (J1650 PER 10MG) SC SCH (09:01)
[2025-05-15] MEDS: SPIRONOLACTONE 25 MG TAB PO SCH (09:05)
[2025-05-15 12:00] VITALS: BP 102/66; TEMP 97.8; O2SAT 99
[2025-05-15] MEDS: MIDODRINE 5 MG TAB PO SCH (12:33)
[2025-05-15 20:10] VITALS: BP 97/60; TEMP 97.6; O2SAT 98
[2025-05-16] VITALS (9 sets, daily range): BP systolic 94–121; BP diastolic 55–67; TEMP 97–98.8; O2SAT 93–99
[2025-05-16] MEDS: MIDODRINE 5 MG TAB PO ONE (05:53)
[2025-05-16 06:08] LABS: BASO # 0.1 10^3/uL (0.0-0.2); BASO % 1.0 % (0.0-1.0); EOS # 0.1 10^3/uL (0.0-0.5); EOS % 2.7 % (0.0-3.0); LYMPH # 1.1 10^3/uL (1.5-5.0); LYMPH % 21.8 % (24.0-44.0); MONO # 0.6 10^3/uL (0.0-0.8); MONO % 12.4 % (2.0-8.0); NEUTROPHILS # 3.0 10^3/uL (1.5-8.5); NEUTROPHILS % 58.0 % (36.0-66.0); PLATELET COUNT, AUTOMATED 268 10^3/uL (150-450)
[2025-05-16 06:24] LABS: CALCIUM LEVEL 7.6 MG/DL (8.5-10.1); CARBON DIOXIDE LEVEL 31.0 MMOL/L (20-31); CHLORIDE LEVEL 98.0 MMOL/L (98-107); CREATININE FOR GFR 0.89 MG/DL (0.55-1.30); GLOMERULAR FILTRATION RATE 75.6 (>51); POTASSIUM SERUM 3.9 MMOL/L (3.5-5.1); SODIUM LEVEL 140.0 MMOL/L (136-145)
[2025-05-16] MEDS: CALCIUM GLUCONATE 1,000 MG in DEXTROSE 5% (D5W) MINI-BAG PLU 100 ML IV ONE (08:17)
[2025-05-17] VITALS (10 sets, daily range): BP systolic 92–120; BP diastolic 49–67; TEMP 97.3–98.4; O2SAT 93–98
[2025-05-17] MEDS: MIDODRINE 5 MG TAB PO ONE (06:04)
[2025-05-17 06:49] LABS: PLATELET COUNT, AUTOMATED 296 10^3/uL (150-450)
[2025-05-17 07:15] LABS: CALCIUM LEVEL 8.4 MG/DL (8.5-10.1); CARBON DIOXIDE LEVEL 30.0 MMOL/L (20-31); CHLORIDE LEVEL 100.0 MMOL/L (98-107); CREATININE FOR GFR 0.82 MG/DL (0.55-1.30); GLOMERULAR FILTRATION RATE 83.4 (>51); POTASSIUM SERUM 3.9 MMOL/L (3.5-5.1); SODIUM LEVEL 139.0 MMOL/L (136-145)
[2025-05-17 07:22] LABS: ATYPICAL LYMPH 3 % (0-5); EOSINOPHILS 1 % (0-3); LYMPHOCYTES 24 % (16-44); MONOCYTES 11 % (0-5); NEUTROPHILS 57 % (28-66)
[2025-05-17 07:24] LABS: PLATELET ESTIMATE NORMAL (NORMAL)
[2025-05-17 07:36] LABS: ALT/SGPT < 9 U/L (7.0-40); AST/SGOT 17 U/L (<34)
[2025-05-17] MEDS: FUROSEMIDE injection 100 MG, VIAL 2 BAG 13MM ADAPTER 1 EACH in NS 100 ML IV SCH (08:45)
[2025-05-17] MEDS: MIDODRINE 5 MG TAB PO SCH (13:21)
[2025-05-18] VITALS (17 sets, daily range): BP systolic 88–126; BP diastolic 54–76; TEMP 97.8–99.1; O2SAT 93–98
[2025-05-18 06:02] LABS: BASO # 0.0 10^3/uL (0.0-0.2); BASO % 0.7 % (0.0-1.0); EOS # 0.4 10^3/uL (0.0-0.5); EOS % 6.0 % (0.0-3.0); LYMPH # 1.4 10^3/uL (1.5-5.0); LYMPH % 24.0 % (24.0-44.0); MONO # 0.6 10^3/uL (0.0-0.8); MONO % 9.9 % (2.0-8.0); NEUTROPHILS # 3.1 10^3/uL (1.5-8.5); NEUTROPHILS % 52.4 % (36.0-66.0); PLATELET COUNT, AUTOMATED 302 10^3/uL (150-450)
[2025-05-18 06:32] LABS: CALCIUM LEVEL 7.9 MG/DL (8.5-10.1); CARBON DIOXIDE LEVEL 28 MMOL/L (20-31); CHLORIDE LEVEL 101 MMOL/L (98-107); CREATININE FOR GFR 0.76 MG/DL (0.55-1.30); GLOMERULAR FILTRATION RATE > 90.0 (>51); POTASSIUM SERUM 4.0 MMOL/L (3.5-5.1); SODIUM LEVEL 137 MMOL/L (136-145)
[2025-05-18] MEDS: MIDODRINE 5 MG TAB PO ONE (08:25)
[2025-05-18] MEDS: MIDODRINE 5 MG TAB PO SCH (12:17)
[2025-05-19] VITALS (10 sets, daily range): BP systolic 104–115; BP diastolic 56–70; TEMP 97.2–98.8; O2SAT 92–98
[2025-05-19 06:09] LABS: BASO # 0.0 10^3/uL (0.0-0.2); BASO % 0.5 % (0.0-1.0); EOS # 0.4 10^3/uL (0.0-0.5); EOS % 5.5 % (0.0-3.0); LYMPH # 1.9 10^3/uL (1.5-5.0); LYMPH % 29.1 % (24.0-44.0); MONO # 0.6 10^3/uL (0.0-0.8); MONO % 9.8 % (2.0-8.0); NEUTROPHILS # 3.2 10^3/uL (1.5-8.5); NEUTROPHILS % 49.3 % (36.0-66.0); PLATELET COUNT, AUTOMATED 286 10^3/uL (150-450)
[2025-05-19 06:23] LABS: CALCIUM LEVEL 8.7 MG/DL (8.5-10.1); CARBON DIOXIDE LEVEL 29.0 MMOL/L (20-31); CHLORIDE LEVEL 98.0 MMOL/L (98-107); CREATININE FOR GFR 0.83 MG/DL (0.55-1.30); GLOMERULAR FILTRATION RATE 82.2 (>51); POTASSIUM SERUM 4.0 MMOL/L (3.5-5.1); SODIUM LEVEL 139.0 MMOL/L (136-145)
[2025-05-19 09:12] LABS: ERYTHROCYTE SEDIMENTATION RATE 72 mm/hr (0-30)
[2025-05-19 09:13] LABS: C REACTIVE PROTEIN QUANTITATIV 5.57 MG/DL (<1.0)
[2025-05-19] MEDS: PERCOCET 5MG/325MG TAB PO ONE (09:27)
[2025-05-19] MEDS: KETOROLAC 30 MG/ML 1 ML VIAL IV ONE (09:28)
[2025-05-19] MEDS: CALCIUM GLUCONATE 1,000 MG in DEXTROSE 5% (D5W) MINI-BAG PLU 100 ML IV ONE (09:57)
[2025-05-19] MEDS: MAG SULF 1GM/100ML (MAG RUN) 1 GM in IV 1 EA IV ONE (11:35)
[2025-05-19] MEDS ORDERED: MIDODRINE 5 MG TAB PO ONE (12:00)
[2025-05-19] MEDS: ONDANSETRON 4MG 2ML VIAL IV PRN (20:53)
[2025-05-20] VITALS (13 sets, daily range): BP systolic 102–124; BP diastolic 53–72; TEMP 98.1–99.1; O2SAT 91–98
[2025-05-20 06:53] LABS: PLATELET COUNT, AUTOMATED 316 10^3/uL (150-450)
[2025-05-20 07:05] LABS: CALCIUM LEVEL 8.5 MG/DL (8.5-10.1); CARBON DIOXIDE LEVEL 29.0 MMOL/L (20-31); CHLORIDE LEVEL 98.0 MMOL/L (98-107); CREATININE FOR GFR 1.02 MG/DL (0.55-1.30); GLOMERULAR FILTRATION RATE 64.2 (>51); POTASSIUM SERUM 4.1 MMOL/L (3.5-5.1); SODIUM LEVEL 138.0 MMOL/L (136-145)
[2025-05-20 07:28] LABS: MAGNESIUM LEVEL 2.1 MG/DL (1.8-2.4)
[2025-05-20 07:37] LABS: ATYPICAL LYMPH 5 % (0-5); EOSINOPHILS 5 % (0-3); LYMPHOCYTES 14 % (16-44); METAMYELOCYTES 2 % (0-0); MONOCYTES 7 % (0-5); MYELOCYTES 2 % (0-0); NEUTROPHILS 64 % (28-66)
[2025-05-20 07:38] LABS: PLATELET ESTIMATE NORMAL (NORMAL)
[2025-05-21 00:41] VITALS: BP 111/65; TEMP 98.4; O2SAT 93
[2025-05-21 02:15] VITALS: BP 109/62; TEMP 98.6; O2SAT 93
[2025-05-21 04:03] VITALS: BP 107/62; TEMP 99; O2SAT 90
[2025-05-21 06:06] VITALS: BP 116/67
[2025-05-21] MEDS: SPIRONOLACTONE 25 MG TAB PO SCH (06:51)
[2025-05-21 07:14] LABS: BASO # 0.0 10^3/uL (0.0-0.2); BASO % 0.6 % (0.0-1.0); EOS # 0.2 10^3/uL (0.0-0.5); EOS % 3.9 % (0.0-3.0); LYMPH # 1.7 10^3/uL (1.5-5.0); LYMPH % 27.5 % (24.0-44.0); MONO # 0.6 10^3/uL (0.0-0.8); MONO % 10.2 % (2.0-8.0); NEUTROPHILS # 3.2 10^3/uL (1.5-8.5); NEUTROPHILS % 51.3 % (36.0-66.0); PLATELET COUNT, AUTOMATED 281 10^3/uL (150-450)
[2025-05-21 07:34] LABS: CALCIUM LEVEL 8.6 MG/DL (8.5-10.1); CARBON DIOXIDE LEVEL 32.0 MMOL/L (20-31); CHLORIDE LEVEL 96.0 MMOL/L (98-107); CREATININE FOR GFR 0.91 MG/DL (0.55-1.30); GLOMERULAR FILTRATION RATE 73.6 (>51); MAGNESIUM LEVEL 2.1 MG/DL (1.8-2.4); POTASSIUM SERUM 3.9 MMOL/L (3.5-5.1); SODIUM LEVEL 136.0 MMOL/L (136-145)
[2025-05-21] MEDS: MAG SULF 1GM/100ML (MAG RUN) 1 GM in IV 1 EA IV ONE (08:21)
[2025-05-21] MEDS: CALCIUM GLUCONATE 1,000 MG in DEXTROSE 5% (D5W) MINI-BAG PLU 100 ML IV ONE (08:21)
[2025-05-21] MEDS: MIDODRINE 5 MG TAB PO ONE (08:24)
[2025-05-21 08:27] VITALS: BP 105/58
[2025-05-21] MEDS: TORSEMIDE 20 MG TAB PO ONE (08:27)
[2025-05-21 12:12] VITALS: BP 136/84; TEMP 98; O2SAT 96
== END 2025-05-21 13:38 | disposition home or self-care (01) | DRG 375 ==
LOC: M ED 13:10 → M ED INP 18:03 → M MSPAV 20:18
PROVIDERS: ADMIT Internal Medicine Nephrology; ATTEND General Practice
PROC: 0W9G3ZZ Drainage of Peritoneal Cavity, Percutaneous Approach (ICD-10-PCS; 2025-05-15)
PROC: 30233J1 Transfusion of Nonautologous Serum Albumin into Peripheral Vein, Percutaneous Approach (ICD-10-PCS; principal; 2025-05-16)
DX: C78.6 Secondary malignant neoplasm of retroperitoneum and peritoneum (principal); R18.0 Malignant ascites; C79.51 Secondary malignant neoplasm of bone; C78.7 Secondary malignant neoplasm of liver and intrahepatic bile duct; J90 Pleural effusion, not elsewhere classified; C50.912 Malignant neoplasm of unspecified site of left female breast; E87.70 Fluid overload, unspecified; I87.2 Venous insufficiency (chronic) (peripheral); I89.0 Lymphedema, not elsewhere classified; G62.0 Drug-induced polyneuropathy; E66.9 Obesity, unspecified; R19.7 Diarrhea, unspecified; I95.9 Hypotension, unspecified; D64.9 Anemia, unspecified; F20.9 Schizophrenia, unspecified; M85.88 Other specified disorders of bone density and structure, other site; F41.9 Anxiety disorder, unspecified; G89.29 Other chronic pain; E87.6 Hypokalemia; E88.09 Other disorders of plasma-protein metabolism, not elsewhere classified; Z79.899 Other long term (current) drug therapy; Z91.013 Allergy to seafood; Z88.8 Allergy status to other drugs, medicaments and biological substances; Z68.35 Body mass index [BMI] 35.0-35.9, adult; Z79.891 Long term (current) use of opiate analgesic

== ENCOUNTER → 2025-06-14 | Outpatient (CLI) | payer MEDICARE ==
[~2025-06-14] VITALS: Ht 165.1 cm; Wt 91.1 kg
[~2025-06-14] MED LIST changes: +OXYC15TA66 PO
[2025-06-14 10:37] VITALS: BP 135/87; O2SAT 95
== END ==
LOC: M PAL 10:17
PROVIDERS: ATTEND Physician Assistant
DX: Z51.5 Encounter for palliative care (principal); C50.919 Malignant neoplasm of unspecified site of unspecified female breast; C79.70 Secondary malignant neoplasm of unspecified adrenal gland; C79.51 Secondary malignant neoplasm of bone; C78.6 Secondary malignant neoplasm of retroperitoneum and peritoneum; Z79.891 Long term (current) use of opiate analgesic; Z91.013 Allergy to seafood; Z88.6 Allergy status to analgesic agent; Z79.899 Other long term (current) drug therapy

== ENCOUNTER → 2025-06-22 | Outpatient (CLI) | payer MEDICARE ==
[~2025-06-22] MED LIST changes: +XTAM13.5 PO
[2025-06-22 14:20] VITALS: TEMP 97.8
[2025-06-22 15:32] VITALS: BP 120/66; O2SAT 99
== END ==
LOC: M IRPRO 13:54
PROVIDERS: ATTEND Specialist
DX: R18.8 Other ascites (principal)

== ENCOUNTER → 2025-06-26 | Outpatient (CLI) | payer MEDICARE ==
[~2025-06-26] VITALS: Ht 165.1 cm; Wt 86.0 kg
[2025-06-26 09:46] VITALS: BP 143/82; O2SAT 99
== END ==
LOC: M PAL 09:26
PROVIDERS: ATTEND Physician Assistant
DX: Z51.5 Encounter for palliative care (principal); C50.919 Malignant neoplasm of unspecified site of unspecified female breast; C78.7 Secondary malignant neoplasm of liver and intrahepatic bile duct; C79.51 Secondary malignant neoplasm of bone; C78.6 Secondary malignant neoplasm of retroperitoneum and peritoneum; Z79.891 Long term (current) use of opiate analgesic; Z79.899 Other long term (current) drug therapy; Z91.013 Allergy to seafood; Z88.6 Allergy status to analgesic agent

== ENCOUNTER → 2025-07-20 | Outpatient (CLI) | payer MEDICARE ==
[2025-07-20 14:05] VITALS: TEMP 97.9
[2025-07-20 15:10] VITALS: BP 126/68; O2SAT 95
== END ==
LOC: M IRPRO 13:47
PROVIDERS: ATTEND Specialist
DX: R18.8 Other ascites (principal); C50.912 Malignant neoplasm of unspecified site of left female breast

== ENCOUNTER → 2025-07-26 | Outpatient (CLI) | payer MEDICARE | LOC: M PAL 09:35 | PROVIDERS: ATTEND Physician Assistant | DX: Z51.5 Encounter for palliative care (principal); C50.019 Malignant neoplasm of nipple and areola, unspecified female breast; C78.7 Secondary malignant neoplasm of liver and intrahepatic bile duct; C79.51 Secondary malignant neoplasm of bone; C48.1 Malignant neoplasm of specified parts of peritoneum; C78.6 Secondary malignant neoplasm of retroperitoneum and peritoneum; Z79.891 Long term (current) use of opiate analgesic; Z91.013 Allergy to seafood; Z88.6 Allergy status to analgesic agent; Z79.899 Other long term (current) drug therapy ==

== ENCOUNTER → 2025-08-23 | Outpatient (CLI) | payer MEDICARE ==
[~2025-08-23] MED LIST changes: +FURO40TA2 PO; +MIDO2.5T3 PO; +SENN-122 PO
== END ==
LOC: M PAL 13:11
PROVIDERS: ATTEND Physician Assistant
DX: Z51.5 Encounter for palliative care (principal); Z85.3 Personal history of malignant neoplasm of breast; C78.7 Secondary malignant neoplasm of liver and intrahepatic bile duct; C79.51 Secondary malignant neoplasm of bone; C78.6 Secondary malignant neoplasm of retroperitoneum and peritoneum; Y84.4 Aspiration of fluid as the cause of abnormal reaction of the patient, or of later complication, without mention of misadventure at the time of the procedure; Z79.891 Long term (current) use of opiate analgesic; Z91.013 Allergy to seafood; Z88.6 Allergy status to analgesic agent; Z79.899 Other long term (current) drug therapy

== ENCOUNTER → 2025-09-03 | Outpatient (CLI) | payer MEDICARE ==
[~2025-09-03] MED LIST changes: +ACETAMINOPHEN 325 MG TAB PO PRN; +OXYC30TA72 PO
[2025-09-03 14:10] VITALS: TEMP 97.6
[2025-09-03 15:24] VITALS: BP 115/66; O2SAT 98
== END ==
LOC: M IRPRO 13:58
PROVIDERS: ATTEND Specialist
DX: R18.8 Other ascites (principal); C50.919 Malignant neoplasm of unspecified site of unspecified female breast

== ENCOUNTER → 2025-09-06 | Outpatient (CLI) | payer MEDICARE ==
[~2025-09-06] MED LIST changes: -ACETAMINOPHEN 325 MG TAB PO PRN
== END ==
LOC: M PAL 11:02
PROVIDERS: ATTEND Physician Assistant
DX: Z51.5 Encounter for palliative care (principal); Z79.891 Long term (current) use of opiate analgesic; Z91.013 Allergy to seafood; Z88.6 Allergy status to analgesic agent; Z79.52 Long term (current) use of systemic steroids